=== PATIENT | female | born 1985 | race African-American/Black ===

== ENCOUNTER 2022-07-14 08:50 | Inpatient (IN) | payer BC ==
[2022-07-14 09:50] LABS: Fetal Membranes Rupture RUPTURE DETECTED (No Rupture)
[2022-07-14] MEDS ORDERED: Methylergonovine 0.2 MG/ML VIAL IM PRN (10:24)
[2022-07-14] MEDS ORDERED: hydrALAZINE 20 MG/ML VIAL SLOW IVP PRN (10:24)
[2022-07-14] MEDS ORDERED: Ondansetron PF 4 MG/2 ML Vial IVP PRN ×2 (10:24→20:55)
[2022-07-14] MEDS ORDERED: Tranexamic Acid 1,000 MG in Sodium Chloride 0.9% 250 ML 250 ML IVPB PRN (10:24)
[2022-07-14] MEDS ORDERED: Carboprost 250 MCG/ML AMP IM PRN (10:24)
[2022-07-14] MEDS ORDERED: Butorphanol Tartrate 1 MG/ML VIAL SLOW IVP PRN (10:24)
[2022-07-14] MEDS ORDERED: Promethazine HCl 25 MG/ML VIAL IM PRN ×2 (10:24→20:55)
[2022-07-14] MEDS ORDERED: Lidocaine 1% (PF) 30 ML VIAL SC PRN (10:24)
[2022-07-14] MEDS ORDERED: Acetaminophen 500 MG TAB PO PRN (10:24)
[2022-07-14] MEDS ORDERED: Misoprostol 200 MCG TAB PR PRN (10:24)
[2022-07-14] MEDS ORDERED: Penicillin G Potassium 5 MILL.UNITS in Sodium Chloride 0.9% 100 ML IVPB SCH (10:30)
[2022-07-14] MEDS ORDERED: NS w/ Oxytocin 30 units 500 ML IV SCH ×2 (10:30)
[2022-07-14] MEDS: Lactated Ringer's 1,000 ML IV SCH ×2 (10:37→12:26)
[2022-07-14] MEDS ORDERED: Penicillin G Potassium 5 MILL.UNITS VIAL ONE (11:02)
[2022-07-14 11:15] VITALS: BMI 29.0
[2022-07-14 11:26] LABS: Hemoglobin 12.6 g/dL (12.0-15.5); Mean Corpuscular HGB CONC 32.9 g/dL (32.0-36.0); Mean Corpuscular Hemoglobin 28.2 pg (27.0-33.0); Mean Corpuscular Volume 85.7 fl (81.6-98.3); Mean Platelet Volume 11.1 fl (7.4-10.4); Platelet Count 272 10x3/uL (150-450); RBC Distribution Width 14.6 % (11.5-14.5); Red Blood Cell (RBC) Count 4.47 10x6/uL (3.90-5.03); White Blood Cell (WBC) Count 8.8 10x3/uL (3.5-10.5)
[2022-07-14 11:55] LABS: HBSAg Index 0.13 S/CO (0-0.99); Hep B Surf Ag Non-Reactive S/CO (NonReactive)
[2022-07-14 11:56] LABS: Syphilis Antibody Nonreactive (Nonreactive); Syphilis Antibody Index 0.02 S/CO (<1.00 Non-Reactive)
[2022-07-14 12:27] LABS: SARS-CoV-2 NAA Rapid Test Not Detected (NotDetected)
[2022-07-14] MEDS ORDERED: NS w/ Oxytocin 30 units 500 ML ONE (13:10)
[2022-07-14] MEDS: Penicillin G 2.5 MILL.units 2.5 MILL.UNITS in Premix Bag 1 BAG IVPB SCH ×2 (15:32→21:37)
[2022-07-14] MEDS ORDERED: Fentanyl 2 mcg/Bup 0.1% Cadd 100 ML ONE ×2 (15:40→20:37)
[2022-07-14] MEDS ORDERED: Acetaminophen 325 MG TAB PO PRN (20:55)
[2022-07-14] MEDS ORDERED: Moisturizing Cream (Eucerin) 113 GM JAR TOP PRN (20:55)
[2022-07-14] MEDS ORDERED: ePHEDrine Sulfate 50 MG/10 ML VIAL SLOW IVP PRN (20:55)
[2022-07-14] MEDS ORDERED: diphenhydrAMINE 50 MG/ML VIAL IVP PRN (20:55)
[2022-07-14] MEDS ORDERED: Naloxone HCl 0.4 mg/ml Vial IVP PRN ×2 (20:55)
[2022-07-14] MEDS ORDERED: Communication Order-Pharmacy FS SCH (21:00)
[2022-07-14] MEDS ORDERED: Fentanyl 2 mcg/Bupivacaine 0.1% Cassette 100 ML EPIDURAL SCH (21:00)
[2022-07-14] MEDS ORDERED: Lactated Ringer's 500 ML IV PRN (21:02)
[2022-07-14] MEDS ORDERED: Acetaminophen 500 MG TAB PO SCH (23:30)
[2022-07-14] MEDS: Ampicillin 2 GM in Sodium Chloride 0.9% 100 ML IVPB SCH (23:53)
[2022-07-15] MEDS ORDERED: SODIUM CHLORIDE 0.9% IVPB SCH (00:30)
[2022-07-15] MEDS ORDERED: GENTAMICIN SULFATE IVPB SCH (00:30)
[2022-07-15] MEDS ORDERED: Promethazine HCl 25 MG/ML VIAL IM PRN ×2 (07:31→08:52)
[2022-07-15] MEDS ORDERED: Milk Of Magnesia 30 ML UDCUP PO PRN (07:31)
[2022-07-15] MEDS ORDERED: Benzocaine-Menthol 82.5 ML CAN TOP PRN (07:31)
[2022-07-15] MEDS ORDERED: Preparation H Ointment 28 GM TUBE PR PRN (07:31)
[2022-07-15] MEDS ORDERED: HYDROcodone/Acetaminophen 5/325 mg Tablet PO PRN ×3 (07:31→11:00)
[2022-07-15] MEDS ORDERED: hydrALAZINE 20 MG/ML VIAL SLOW IVP PRN (07:31)
[2022-07-15] MEDS ORDERED: diphenhydrAMINE 25 MG CAP PO PRN (07:31)
[2022-07-15] MEDS ORDERED: Boostrix 0.5 ML (Tdap) VIAL (>/=7 yrs of age) IM ONE (07:31)
[2022-07-15] MEDS ORDERED: Ondansetron PF 4 MG/2 ML Vial IVP PRN ×2 (07:31→08:52)
[2022-07-15] MEDS ORDERED: Lanolin Ointment 7 GM TUBE TOP PRN (07:31)
[2022-07-15] MEDS ORDERED: Bisacodyl 10 MG SUPP PR PRN (07:31)
[2022-07-15] MEDS ORDERED: Ibuprofen 800 MG TAB PO SCH (08:00)
[2022-07-15] MEDS ORDERED: Fentanyl 100 MCG/2 ML VIAL SLOW IVP PRN (08:52)
[2022-07-15] MEDS ORDERED: diphenhydrAMINE 50 MG/ML VIAL IVP PRN (08:52)
[2022-07-15] MEDS ORDERED: Promethazine HCl 25 MG SUPP PR PRN (08:52)
[2022-07-15] MEDS ORDERED: Meperidine HCl/PF 25 MG/ML VIAL SLOW IVP PRN (08:52)
[2022-07-15] MEDS ORDERED: Naloxone HCl 0.4 mg/ml Vial IVP PRN ×2 (08:52)
[2022-07-15] MEDS ORDERED: Naloxone HCl 0.4 mg/ml Vial IV PRN (08:52)
[2022-07-15] MEDS ORDERED: Moisturizing Cream (Eucerin) 113 GM JAR TOP PRN (08:52)
[2022-07-15] MEDS ORDERED: Ondansetron HCl/PF 4 MG/2 ML Vial IVP PRN (08:52)
[2022-07-15] MEDS ORDERED: Communication Order-Pharmacy FS SCH (09:00)
[2022-07-15] MEDS: Docusate 100 MG CAP PO SCH ×2 (09:55→21:05)
[2022-07-15] MEDS: Prenatal Vitamin 1 TAB PO SCH (09:55)
[2022-07-15] MEDS: Ferrous Sulfate 325 MG TAB PO SCH ×2 (09:55→16:19)
[2022-07-15] MEDS: HYDROcodone/Acetaminophen 5/325 mg Tablet PO PRN ×4 (10:44→23:35)
[2022-07-15] MEDS: Penicillin G 2.5 MILL.units 2.5 MILL.UNITS in Premix Bag 1 BAG IVPB SCH (11:01)
[2022-07-15] MEDS: Ampicillin 2 GM in Sodium Chloride 0.9% 100 ML IVPB SCH (11:02)
[2022-07-15] MEDS: Lactated Ringer's 1,000 ML IV SCH (11:02)
[2022-07-15] MEDS ORDERED: Ketorolac Tromethamine 30 MG/ML VIAL IVP SCH (16:30)
[2022-07-15] MEDS ORDERED: Ketorolac Tromethamine 30 MG/ML VIAL IVP PRN (16:30)
[2022-07-15] MEDS: Ibuprofen 800 MG TAB PO SCH (21:06)
[2022-07-16] MEDS: HYDROcodone/Acetaminophen 5/325 mg Tablet PO PRN ×5 (03:37→22:53)
[2022-07-16] MEDS: Ibuprofen 800 MG TAB PO SCH ×3 (05:35→20:13)
[2022-07-16] MEDS: Prenatal Vitamin 1 TAB PO SCH (08:21)
[2022-07-16] MEDS: Docusate 100 MG CAP PO SCH ×2 (08:21→20:13)
[2022-07-16] MEDS: Ferrous Sulfate 325 MG TAB PO SCH (18:37)
[2022-07-17] MEDS: HYDROcodone/Acetaminophen 5/325 mg Tablet PO PRN ×3 (02:52→11:27)
[2022-07-17] MEDS: Ibuprofen 800 MG TAB PO SCH ×2 (05:49→13:24)
[2022-07-17 08:08] VITALS: BP 133/80; TEMP 97.5
[2022-07-17] MEDS: Prenatal Vitamin 1 TAB PO SCH (08:28)
[2022-07-17] MEDS: Docusate 100 MG CAP PO SCH (08:28)
[2022-07-17] MEDS: Ferrous Sulfate 325 MG TAB PO SCH (08:30)
== END 2022-07-17 13:50 | disposition home or self-care (01) | DRG 807 ==
LOC: CSHLD/OP 08:50 → EEVIPCON 08:50 → CSHLD 19:09 → CSHPP 07-15 09:08
PROVIDERS: ADMIT Student in an Organized Health Care Education/Training Program; ATTEND Student in an Organized Health Care Education/Training Program
PROC: 10E0XZZ Delivery of Products of Conception, External Approach (ICD-10-PCS; principal; 2022-07-15)
PROC: 0W8NXZZ Division of Female Perineum, External Approach (ICD-10-PCS; 2022-07-15)
DX: O42.92 Full-term premature rupture of membranes, unspecified as to length of time between rupture and onset of labor (principal); Z37.0 Single live birth; O24.420 Gestational diabetes mellitus in childbirth, diet controlled; Z20.822 Contact with and (suspected) exposure to COVID-19; O75.89 Other specified complications of labor and delivery; Z67.90 Unspecified blood type, Rh positive; O99.824 Streptococcus B carrier state complicating childbirth; Z3A.38 38 weeks gestation of pregnancy; Z79.899 Other long term (current) drug therapy
CPT/HCPCS: 36415; 36416; 51702; 84112; 85027; 86780; 86850; 86900; 86901; 87340; 88307; 99285; J0290; J1580; J2540; J2590; J3490; U0002